=== PATIENT | female | born 1975 ===

== ENCOUNTER 2023-03-25 13:23 | Emergency (ER) | payer OTHER, SELFPAY ==
[2023-03-25 13:57] VITALS: BP 113/78; PULSE 76; RESP 18; TEMP 36.7; O2SAT 98; BMI 32.1
--- NOTE | 2023-03-25 14:01 | ED_ITS ---
HPI - General Adult General Chief complaint: Dental/Oral Stated complaint: dental and ear pain Time Seen by Provider: 03/25/23 14:15 Source: patient and RN notes reviewed Mode of arrival: ambulatory Limitations: no limitations History of Present Illness HPI narrative: This is a 47-year-old female presenting to the emergency department for evaluation right lower dental pain since yesterday per patient reports that she has a history dental infections in the past. She states that she has been taking Excedrin and Tylenol as needed for pain. She denies any fevers or chills. No difficulty swallowing. 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 No other complaints or concerns at this time. MD complaint: Dental pain Onset (ago): day(s) Radiation: non-radiation Quality: aching Pain Consistency: constant Relieving factors: none Exacerbating factors: none Associated symptoms: denies other symptoms Treatments prior to arrival: none Related Data Previous Rx's Medication Instructions Recorded amoxicillin 875 mg-potassium 1 tab PO BID 7 days #14 tabs 03/25/23 clavulanate 125 mg tablet ibuprofen 600 mg tablet 600 mg PO Q6H PRN pain #30 tabs 03/25/23 oxycodone 5 mg tablet 5 mg PO BID PRN severe pain (scale 03/25/23 score 7-10) #3 tabs Allergies Allergy/AdvReac Type Severity Reaction Status Date / Time SEAFOOD Allergy Mild ANAPHYLAXIS Uncoded 03/26/20 16:29 Review of Systems 2 Review of Systems: Yes all other systems are reviewed and are negative PMFSH Social History Social History Advance Directives: No Advance Directives Information Provided: Yes Physical Exam ED Vital Signs: Vital Signs - 24 hr 03/25/23 13:57 Temperature 98.1 F Pulse Rate 76 Respiratory Rate 18 Blood Pressure 113/78 Pulse Oximetry 98 Oxygen Delivery Method Room Air BMI result Body Mass Index 32.1 Const Other: General: Awake, alert, and oriented X3. No acute distress. HEENT: Normal inspection > see ENT for dental exam CVS: Normal heart rate and rhythm. Pulses normal. Respiratory: No respiratory distress Skin: Warm, dry, no rashes noted to exposed skin. Normal skin color. Normal skin turgor. Extremities: Normal to inspection Neuro: Oriented X 3. No motor deficit. No sensory deficit. [facility] Teeth image: 2 1. poor dentition, tenderness to palpation along tooth number 32 with obvious dental decay. No obvious dental abscess. no fluctuance or drainage noted Course Course Course Narrative: This is an RME: Additional HPI, ROS, PE not included below will be deferred to primary provider. This is a [id number]-female presenting to the emergency department with complaints of dental and ear pain x . Pt state Medications Administered Discontinued Medications Generic Name Dose Route Start Last Admin Trade Name Hasmukh PRN Reason Stop Dose Admin Oxycodone HCl 5 mg 03/25/23 14:12 03/25/23 14:23 Oxycodone Hcl Immed Release 5 Mg Tablet PO 03/25/23 14:13 5 mg ONCE ONE Administration Medical Decision Making Medical Decision Making MDM Narrative: 47-year-old female presenting to the emergency department for evaluation of dental pain since yesterday. On arrival, all vital signs within normal limits. patient has poor dentition, with tenderness palpation along tooth number 32 with dental decay noted. No drainable dental abscess noted. Patient has taken a total of 3900 mg of Tylenol since last night. patient advised to avoid taking Tylenol, and Excedrin and so tomorrow as she maxed out her Tylenol dosage. I urged the importance of this as this can lead to liver failure. she is wondering what she can take now for severe pain, given oxycodone 5 mg by mouth, her son is driving her home from the emergency department today. Patient understands and agrees with plan. Patient medicated with oxycodone given discomfort, started on Augmentin. Advised to call dentist on Monday for further treatment and evaluation. Patient understands agrees with plan. Patient stable for discharge. Differential Diagnosis Differential Diagnoses: The differential diagnosis associated with the presentation includes Dental decay, dental abscess, gingivitis, dental fracture, facial pain Discharge Plan Discharge Clinical Impression: Dental infection Patient Disposition: Home, Self-Care Instructions: Dental Abscess (ED) Additional Instructions: You have a dental infection. Please take prescribed antibiotic as directed. Do not take anymore Tylenol as you have maxed out your dose. You cannot take more than 4000g in a 24 hour period. Overdosing on tylenol is extremely dangerous. Do not take more than prescribed or indicated on directions. You may take ibuprofen every 6 hours as needed for pain. Do not take more than prescribed. You may take ibuprofen tonight as needed for pain. Starting tomorrow at 8:00 a.m., you may alternate between ibuprofen and Tylenol. Oxycodone will cause drowsiness, do not drink alcohol or drive while taking this medication. We cannot refill this medication from the emergency room. Please take prescribed antibiotic as directed, finish the entire course even if you are feeling better. Please call your dentist on Monday to make an appointment. If any new or worsening symptoms occur, please return for re-evaluation. Tienes jerson infecci?n dental. [place] el antibi?isabel recetado seg?n las indicaciones. No tome m?s Tylenol ya que nascimento llegado al m?ximo de bianchi dosis. No se pueden isidra m?s de 4000g en un periodo de 24 horas. La sobredosis de tylenol es extremadamente peligrosa. No tome m?s de lo prescrito o indicado en las instrucciones. Puede isidra ibuprofeno cada 6 horas seg?n sea necesario para el dolor. No tome m?s de lo recetado. Puede isidra ibuprofeno esta noche seg?n sea necesario para el dolor. A partir de ma?manuelito a las 8:00 horas podr?s alternar entre ibuprofeno y Tylenol. La oxicodona provocar? somnolencia; no yonatan alcohol ni conduzca mientras kayy daniel medicamento. No podemos surtir daniel medicamento desde la suzanne de emergencias. [place] el antibi?isabel recetado seg?n las indicaciones y termine todo el tratamiento incluso si se siente mejor. Llame a bianchi dentista el para programar jerson joseaf. Si se presenta alg?n s?ntoma nuevo o que empeora, regrese para jerson nueva evaluaci?n. Prescriptions: New amoxicillin-pot clavulanate 875-125 mg tablet 1 tab PO BID 7 Days Qty: 14 0RF oxycodone 5 mg tablet 5 mg PO BID PRN (Reason: severe pain (scale score 7-10)) Qty: 3 0RF Rx Instructions: Partial Fill upon patient request. ibuprofen 600 mg tablet 600 mg PO Q6H PRN (Reason: pain) Qty: 30 0RF Print Language: Somali
[2023-03-25] MEDS: oxyCODONE HCl Immed Release 5 MG TABLET PO (14:23)
== END 2023-03-25 14:44 | disposition home or self-care (01) ==
PROVIDERS: Emergency Provider Student in an Organized Health Care Education/Training Program
DX: K08.89 Other specified disorders of teeth and supporting structures (principal); K04.7 Periapical abscess without sinus
CPT/HCPCS: 99283

== ENCOUNTER 2023-11-23 14:45 | Emergency (ER) | payer OTHER, SELFPAY ==
--- NOTE | ~2023-11-23 | XR_ITS ---
EXAMINATION: XR ABDOMEN KUB CLINICAL INDICATION: Constipation COMPARISON: None available. TECHNIQUE: AP view of the abdomen. FINDINGS: Moderate stool burden suggestive of constipation. Nonobstructive bowel gas pattern. No free air. No calcifications. Normal bony structures. XR/XR KUB IMPRESSION: Moderate stool burden suggestive of constipation.
[2023-11-23 15:16] VITALS: BP 131/90; PULSE 105; RESP 18; TEMP 37.2; O2SAT 97; BMI 31.1
--- NOTE | 2023-11-23 15:17 | ED_ITS ---
HPI - General Adult General Chief complaint: Abdominal Pain Stated complaint: Constipation Time Seen by Provider: 11/23/23 17:25 Source: patient Mode of arrival: ambulatory Limitations: no limitations History of Present Illness HPI narrative: Patient has been constipated for last 5 days now difficulty in moving bowels because of pain no abdominal pain no nausea no vomiting no bleeding from rectum Related Data Previous Rx's ?Medication ?Instructions ?Recorded amoxicillin 875 mg-potassium 1 tab PO BID 7 days #14 tabs 03/25/23 clavulanate 125 mg tablet ibuprofen 600 mg tablet 600 mg PO Q6H PRN pain #30 tabs 03/25/23 oxycodone 5 mg tablet 5 mg PO BID PRN severe pain (scale 03/25/23 score 7-10) #3 tabs polyethylene glycol 3350 17 17 g PO DAILY #510 grams 11/23/23 gram/dose oral powder (Miralax) Allergies Allergy/AdvReac Type Severity Reaction Status Date / Time SEAFOOD Allergy Mild ANAPHYLAXIS Uncoded 11/23/23 15:21 Review of Systems 2 Review of Systems: Yes all other systems are reviewed and are negative [facility] Social History Social History Advance Directives: No Advance Directives Information Provided: No Do you have a plan to hurt others: No Plan Physical Exam ED Vital Signs: Vital Signs - 24 hr 11/23/23 15:16 11/23/23 17:38 Temperature 99.0 F Pulse Rate 105 H 88 Respiratory Rate 18 16 Blood Pressure 131/90 H 113/77 Pulse Oximetry 97 98 Oxygen Delivery Method Room Air Room Air BMI result Body Mass Index 31.1 Appearance: Alert. Oriented X3. No acute distress. Eyes: No pallor or icterus ENT: Pharynx normal. Oral Mucosa moist Neck: Normal inspection. Neck supple. CVS: Normal heart rate and rhythm. Pulses normal. Respiratory: No respiratory distress. Equal air entry bilateral, no wheezing/rales/rhonchi Abdomen: Soft and nontender. Bowel sounds are present, no mass palpable, no CVA tenderness rectal: Semi solid stool in the rectum no fissure, small external hemorrhoid nonbleeding Skin: Skin warm and dry. Normal skin color. Normal skin turgor. Extremities: No lower extremity edema. No calf tenderness Neuro: Oriented X 3. Course Course Course Narrative: RME performed by Patti Ojeda PA-C. Patient is a 48 year old assigned female at presenting to the emergency department with abdominal pain and constipation. Patient states she has been straining more and more to have a bowel movement and is now having low back pain and bilateral leg pain. Detailed physical exam and review of systems are deferred to the glass curvature gauger. Labs ordered. Patient placed back in the waiting room pending room availability and results. Medications Administered Discontinued Medications Generic Name Dose Route Start Last Admin Trade Name Frerocio PRN Reason Stop Dose Admin Bisacodyl 10 mg 11/23/23 19:33 11/23/23 19:47 Bisacodyl 5 Mg Tablet.Dr PO 11/23/23 19:34 10 mg ONCE ONE Administration Lidocaine HCl 10 ml 11/23/23 17:53 11/23/23 18:17 Lidocaine Hcl 2 % Urojet 10 Ml Jel.Pf.Megan TOPICAL 11/23/23 17:54 10 ml ONCE ONE Administration Magnesium Hydroxide 30 ml 11/23/23 19:33 11/23/23 19:47 Milk Of Magnesia 30 Ml Oral.Susp PO 11/23/23 19:34 30 ml ONCE ONE Administration Medical Decision Making Medical Decision Making [facility] Narrative: Manual disimpaction was done patient had a good bowel movement after that will discharge patient home on MiraLax Lab Data [facility] Lab Attestation statement: I reviewed the patient's lab results. 11/23/23 15:32 11/23/23 15:32 Labs: Lab Results 11/23/23 Range/Units 15:32 WBC 10.1 (4.8-10.8) X10*3/uL RBC 3.85 L (4.20-5.50) X10*6/uL Hgb 11.8 L (12.0-16.0) g/dl Hct 34.5 L (37.0-47.0) % MCV 89.6 (80.0-98.0) fL MCH 30.6 (27.0-33.0) pg MCHC 34.2 (31.0-35.0) g/dl RDW 14.6 (11.0-16.0) % Plt Count 251 (160-400) X10*3/uL MPV 10.2 (9.4-12.3) fL Immature Gran % (Auto) 0.4 (0.0-0.4) % Neut % (Auto) 74.7 H (45-73) % Lymph % (Auto) 17.1 L (20-40) % [place] % (Auto) 6.8 (2-11) % Eos % (Auto) 0.8 (0-4) % Baso % (Auto) 0.2 (0-2) % Lymph # (Auto) 1.7 (1.2-4.9) X10*3/uL [place] # (Auto) 0.7 (0.1-1.2) X10*3/uL Eos # (Auto) 0.1 (0.0-0.4) X10*3/uL Baso # (Auto) 0.0 (0.0-0.2) X10*3/uL Abs Immat Gran (auto) 0.04 H (0.00-0.03) X10*3/uL Absolute Neuts (auto) 7.6 (2.0-8.3) x10*3/uL Absolute Nucleated RBC 0.000 (0.0-0.012) X10*3/uL Nucleated RBC % (auto) 0.0 (0.0-0.2) /100WBC Sodium 138 (135-145) mmol/L Potassium 4.0 (3.3-5.1) mmol/L Chloride 107 (96-108) mmol/L Carbon Dioxide 22 (22-29) mmol/L Anion Gap 13 (12-20) BUN 7 L (9-16) mg/dL Creatinine 0.70 (0.5-1.4) mg/dL Estim Creat Clear Calc 82.6 Estimated GFR > 60 Random Glucose 92 (60-115) mg/dL Calcium 9.2 (8.4-10.2) mg/dL Magnesium 1.9 (1.6-2.6) mg/dL Total Bilirubin 0.6 (0.0-1.0) mg/dL AST 18 (5-31) U/L ALT 12 (0-31) U/L Alkaline Phosphatase 76 (39-117) U/L Total Protein 7.6 (6.5-8.0) g/dL Albumin 4.1 (3.5-5.0) g/dL Independent Interpretation I performed an independent interpretation of an: Plain X-Ray Radiology Impression Discussion of test interpretation with radiology: I have reviewed the radiologist's reading. Discharge Plan Discharge Clinical Impression: Constipation Patient Disposition: Home, Self-Care Instructions: Constipation (ED) Additional Instructions: Drink plenty of fluids Stool softener as prescribed Follow the PCP if any concerns Prescriptions: New polyethylene glycol 3350 [Miralax] 17 gram/dose powder 17 g PO DAILY Qty: 510 0RF No Action amoxicillin-pot clavulanate 875-125 mg tablet 1 tab PO BID 7 Days Qty: 14 0RF oxycodone 5 mg tablet 5 mg PO BID PRN (Reason: severe pain (scale score 7-10)) Qty: 3 0RF Rx Instructions: Partial Fill upon patient request. ibuprofen 600 mg tablet 600 mg PO Q6H PRN (Reason: pain) Qty: 30 0RF Print Language: Monegasque
[2023-11-23 15:37] LABS: MANUAL DIFF FLAG NO
[2023-11-23 15:38] LABS: Basophils Percent Auto 0.2 % (0-2); Eosinophils Absolute Auto 0.1 X10*3/uL (0.0-0.4); Eosinophils Percent Auto 0.8 % (0-4); Hematocrit 34.5 % (37.0-47.0); Hemoglobin 11.8 g/dl (12.0-16.0); Imm Gran Abs Auto 0.04 X10*3/uL (0.00-0.03); Imm Gran Pct Auto 0.4 % (0.0-0.4); Lymphocytes Absolute Auto 1.7 X10*3/uL (1.2-4.9); Lymphocytes Percent Auto 17.1 % (20-40); Mean Corpuscular HGB Conc 34.2 g/dl (31.0-35.0); Mean Corpuscular Hemoglobin 30.6 pg (27.0-33.0); Mean Corpuscular Volume 89.6 fL (80.0-98.0); Mean Platelet Volume 10.2 fL (9.4-12.3); Monocytes Absolute Auto 0.7 X10*3/uL (0.1-1.2); Monocytes Percent Auto 6.8 % (2-11); Neutrophils Absolute Auto 7.6 x10*3/uL (2.0-8.3); Neutrophils Percent Auto 74.7 % (45-73); Platelet Count 251 X10*3/uL (160-400); Red Blood Count 3.85 X10*6/uL (4.20-5.50); Red Cell Distribution Width 14.6 % (11.0-16.0); White Blood Count 10.1 X10*3/uL (4.8-10.8)
[2023-11-23 15:53] LABS: Alanine Aminotransferase 12 U/L (0-31); Albumin Level 4.1 g/dL (3.5-5.0); Alkaline Phosphatase 76 U/L (39-117); Anion Gap 13 (12-20); Aspartate Amino Transferase 18 U/L (5-31); Bilirubin Total 0.6 mg/dL (0.0-1.0); Blood Urea Nitrogen 7 mg/dL (9-16); Calcium 9.2 mg/dL (8.4-10.2); Carbon Dioxide 22 mmol/L (22-29); Chloride 107 mmol/L (96-108); Creatinine Clr Calc Pharmacy 82.6; Estimated Glomerular Filt Rate > 60; Glucose Random 92 mg/dL (60-115); Magnesium 1.9 mg/dL (1.6-2.6); Sodium 138 mmol/L (135-145); Total Protein 7.6 g/dL (6.5-8.0)
[2023-11-23 17:38] VITALS: BP 113/77; PULSE 88; RESP 16; O2SAT 98
[2023-11-23] MEDS: Lidocaine HCl 2 % Urojet 10 ML JEL.PF.APP TOPICAL (18:17)
[2023-11-23] MEDS: Milk of Magnesia 30 ML ORAL.SUSP PO (19:47)
[2023-11-23] MEDS: bisacodyL 5 MG TABLET.DR 10 MG PO (19:47)
== END 2023-11-23 20:00 | disposition home or self-care (01) ==
PROVIDERS: Physician Assistant Medical; Emergency Provider Internal Medicine
DX: K59.00 Constipation, unspecified (principal)
CPT/HCPCS: 36415; 74018; 80053; 83735; 85025; 99283

== ENCOUNTER 2025-02-20 13:42 | Emergency (ER) | payer OTHER, SELFPAY ==
--- NOTE | ~2025-02-20 | XR_ITS ---
EXAMINATION: Right hand and right shoulder. CLINICAL INDICATION: Pain. COMPARISON: None. TECHNIQUE: Right shoulder 4 views. Right hand 3 views. FINDINGS: Right hand: There is mild loss of PIP and DIP joint spaces with minimal periarticular spurring along the DIP joints second through fifth digits and PIP joint first, third, fourth and fifth digits. No bony erosive changes or loose bodies seen. No abnormal joint effusion. The soft tissues are normal. Right shoulder: The glenohumeral and AC joint spaces maintain normal. No visible acute fracture, dislocation or bony erosive changes seen. The soft tissues are normal. XR/XR hand RT min 3V IMPRESSION: Unremarkable right shoulder exam. Suspect mild degenerative changes of the right hand. Electronically signed by: Kerwin Montoya MD 02/20/2025 03:19 PM EDT
--- NOTE | ~2025-02-20 | XR_ITS ---
EXAMINATION: Right hand and right shoulder. CLINICAL INDICATION: Pain. COMPARISON: None. TECHNIQUE: Right shoulder 4 views. Right hand 3 views. FINDINGS: Right hand: There is mild loss of PIP and DIP joint spaces with minimal periarticular spurring along the DIP joints second through fifth digits and PIP joint first, third, fourth and fifth digits. No bony erosive changes or loose bodies seen. No abnormal joint effusion. The soft tissues are normal. Right shoulder: The glenohumeral and AC joint spaces maintain normal. No visible acute fracture, dislocation or bony erosive changes seen. The soft tissues are normal. XR/XR shoulder RT min 2V IMPRESSION: Unremarkable right shoulder exam. Suspect mild degenerative changes of the right hand. Electronically signed by: Kerwin Montoya MD 02/20/2025 03:19 PM EDT
[2025-02-20 14:16] VITALS: BP 125/73; PULSE 78; RESP 16; TEMP 36.8; O2SAT 96; BMI 33.1
--- NOTE | 2025-02-20 14:21 | ED_ITS ---
HPI - General Adult General Chief complaint: Extremity Injury, Upper Stated complaint: Middle finger swelling/pain no injury Time Seen by Provider: 02/20/25 19:29 Source: patient Mode of arrival: ambulatory Limitations: language barrier (Syrian speaking only, [facility] lead warehouse associate used) History of Present Illness ED Provider: Dr. Luis Miguel Newton HPI narrative: 49-year-old female with no significant past medical history who presents emergency department for evaluation of pain in her right middle finger, forearm and shoulder. Patient does not report any acute injury. She states that she does carry her grandchild and also tried lifting weights. She states that the pain has been bothering her on and off for months. She states that today she noticed swelling and pain in her right finger and the pain in her right forearm/elbow/shoulder became worse. She denied any increased warmth or redness of her finger. She denied fever or chills. Related Data Previous Rx's ?Medication ?Instructions ?Recorded amoxicillin 875 mg-potassium 1 tab PO BID 7 days #14 t abs 03/25/23 clavulanate 125 mg tablet ibuprofen 600 mg tablet 600 mg PO Q6H PRN pain #30 t abs 03/25/23 oxycodone 5 mg tablet 5 mg PO BID PRN severe pain (scale 03/25/23 score 7-10) #3 tabs polyethylene glycol 3350 17 17 g PO DAILY #510 grams 0 11/23/23 gram/dose oral powder (Miralax) acetaminophen 500 mg tablet 1,000 mg (2 x 500 mg) PO Q 6H PRN 02/20/25 (Tylenol Extra Strength) fever or pain #20 tabs prednisone 10 mg tablet 10 mg PO DIRECTED #60 tab s 02/20/25 Allergies Allergy/AdvReac Type Severity Reaction Status Date / Time SEAFOOD Allergy Mild ANAPHYLAXIS Uncoded 02/20/25 14:26 Review of Systems 2 Review of Systems: Yes all other systems are reviewed and are negative PMFSH Social History Social History Advance Directives: No Do you have a plan to hurt others: No Plan Physical Exam ED Vital Signs: Vital Signs - 24 hr 02/20/25 14:16 Temperature 98.2 F Pulse Rate 78 Respiratory Rate 16 Blood Pressure 125/73 Pulse Oximetry 96 Oxygen Delivery Method Room Air BMI result Body Mass Index 33.1 Vital signs were normal Exam Right upper extremity: Patient has some mild swelling of the right middle finger with no erythema or increased warmth. She has normal range of motion of her finger actively and no significant pain with passive flexion of the finger, the fingers neurovascularly intact. Patient does have tenderness palpation of her medial forearm to the elbow with increased tenderness over the elbow with normal range of motion. Patient also has tenderness palpation of the right shoulder in the right AC joint with full range of motion passively and actively. Extremities neurovascularly intact Course Course Course Narrative: This is an RME: Additional HPI, ROS, PE not included below will be deferred to primary provider. RME assessment and note performed by: Tran Woodson PA-C This is a 49-year-old female who presents emergency department with concerns of right 3rd digit pain, and right shoulder pain as well as chest pain. Patient reports that she has been holding her grandchild for prolonged periods of time. She states that the pain starts into her right shoulder, radiates down into her right middle finger, and radiates across her entire chest. Patient has tenderness palpation along the PIP with moderate edema, full range of motion, pain with range of motion, strong radial pulse, she does have tenderness palpation along the right AC joint, full ROM of the right shoulder without difficulty. Plan: X-ray, EKG, labs, further ER evaluation needed. Medical Decision Making Medical Decision Making MDM Narrative: 49-year-old female with no significant past medical history who presents emergency department for evaluation of pain in her right middle finger, forearm and shoulder. Patient does not report any acute injury. She states that she does carry her grandchild and also tried lifting weights. She states that the pain has been bothering her on and off for months. She states that today she noticed swelling and pain in her right finger and the pain in her right forearm/elbow/shoulder became worse. She denied any increased warmth or redness of her finger. She denied fever or chills. Vital signs were normal. Exam did reveal swelling of the right middle finger but no evidence for tenosynovitis. The patient did have tenderness with palpation of her right lateral forearm and tenderness palpation over the lateral aspect of the elbow. Patient had full range of motion of her shoulder with some tenderness palpation over the AC joint. Differential diagnosis: ?Includes but is not limited to right finger tenosynovitis, right fingers pain, right forearm repetitive motion/tendonitis, tennis elbow, right shoulder sprain/strain Course: 20:15 My independent interpretation patient's laboratory evaluation is as follows: WBC was normal 5200. Normocytic anemia with an H&H of 12.7 and 36.4. Platelet count was normal. CMP was normal. X-rays of the right hand and right shoulder were unremarkable except for degenerative changes in the right hand. This time I suspect the patient has tendonitis of her forearm and possibly of the shoulder as well. I do not think that she has a an infectious process or tenosynovitis of the right middle finger. Patient was started on a prednisone tapering course of 60 mg once a day for 5 days decrease by 10 mg every 2 days. She was also advised to take Tylenol for pain. She was given printed and verbal instructions and discharged home. Admission/Observation Consideration of admission/observation: Escalation of care including admission/observation considered (Yes) Lab Data MDM Lab Attestation statement: I reviewed the patient's lab results. 02/20/25 14:44 02/20/25 14:44 Labs: Lab Results 02/20/25 Range/Units 14:44 WBC 5.2 (4.8-10.8) X10*3/uL RBC 4.07 L (4.20-5.50) X10*6/uL Hgb 12.7 (12.0-16.0) g/dl Hct 36.4 L (37.0-47.0) % MCV 89.4 (80.0-98.0) fL MCH 31.2 (27.0-33.0) pg MCHC 34.9 (31.0-35.0) g/dl RDW 13.5 (11.0-16.0) % Plt Count 199 (160-400) X10*3/uL MPV 10.5 (9.4-12.3) fL Immature Gran % (Auto) 0.4 (0.0-0.4) % Neut % (Auto) 59.1 (45-73) % Lymph % (Auto) 31.4 (20-40) % [place] % (Auto) 7.7 (2-11) % Eos % (Auto) 1.0 (0-4) % Baso % (Auto) 0.4 (0-2) % Lymph # (Auto) 1.6 (1.2-4.9) X10*3/uL [place] # (Auto) 0.4 (0.1-1.2) X10*3/uL Eos # (Auto) 0.1 (0.0-0.4) X10*3/uL Baso # (Auto) 0.0 (0.0-0.2) X10*3/uL Abs Immat Gran (auto) 0.02 (0.00-0.03) X10*3/uL Absolute Neuts (auto) 3.1 (2.0-8.3) x10*3/uL Absolute Nucleated RBC 0.000 (0.0-0.012) X10*3/uL Nucleated RBC % (auto) 0.0 (0.0-0.2) /100WBC Sodium 141 (135-145) mmol/L Potassium 3.9 (3.3-5.1) mmol/L Chloride 109 H (96-108) mmol/L Carbon Dioxide 25 (22-29) mmol/L Anion Gap 11 L (12-20) BUN 9 (9-16) mg/dL Creatinine 0.65 (0.5-1.4) mg/dL Estim Creat Clear Calc 102.8 Estimated GFR > 60 Random Glucose 88 (60-115) mg/dL Calcium 9.1 (8.4-10.2) mg/dL Total Bilirubin 0.4 (0.0-1.0) mg/dL Direct Bilirubin 0.2 (0.0-0.5) mg/dL AST 30 (5-31) U/L ALT 29 (0-31) U/L Alkaline Phosphatase 99 (39-117) U/L Troponin I High Sens 3.0 (<3.5-17.0) ng/L Total Protein 7.1 (6.5-8.0) g/dL Albumin 4.2 (3.5-5.0) g/dL Independent Interpretation I performed an independent interpretation of an: Plain X-Ray Interpretation: My independent interpretation of the patient's right hand x-ray is as follows: No acute fracture, degenerative joint disease of the PIP joints My independent interpretation of the patient's right shoulder x-ray is as follows: No acute fracture, no dislocation, degenerative joint disease Radiology Impression Discussion of test interpretation with radiology: I have reviewed the radiologist's reading. Radiologist Impression: XR hand RT min 3V and right shoulder IMPRESSION: Unremarkable right shoulder exam. Suspect mild degenerative changes of the right hand. Electronically signed by: Kerwin Montoya MD 02/20/2025 03:19 PM EDT Prescription Management I considered prescription management with: Other (Acetaminophen and anti- inflammatory steroids: Prednisone) Discharge Plan Discharge Clinical Impression: Tendonitis of elbow, right, Swelling of right middle finger, Acute pain of right shoulder Patient Disposition: Home, Self-Care Instructions: Tennis Elbow (ED) Additional Instructions: Your pain and swelling is secondary to inflammation of the tendons of your forearm. You do have swelling of your right middle finger but I do not think you have an infection at this time. Take prednisone 10 mg pills, 6 pills once a day for 5 days then decrease by 1 pill every 2 days until you complete the prescription.. While you ?are taking prednisone, do not take any NSAIDs (Motrin, Advil, ibuprofen, Aleve, naproxen). Take Tylenol 500 mg pills, 2 pills every 6 hours as needed for pain. Apply ice to your elbow and right middle finger for 15 minutes 4 to 6 times a day for the next 4 days to help reduce the inflammation in these tendons. After 4 days you can use a heating pad on low for 15 minutes 4 to 6 times a day. Follow-up with your doctor in 2 days. Please return to the emergency department if your symptoms get worse or if you develop any symptoms that are concerning to you. Your blood work was unremarkable. The x-rays of your right hand, and right shoulder did not reveal any significant abnormalities which is reassuring. Prescriptions: New prednisone 10 mg tablet 10 mg PO DIRECTED Qty: 60 0RF Rx Instructions: Day 1 through 5 take 6 pills then decrease by 1 pill every 2 days until you complete prescription acetaminophen [Tylenol Extra Strength] 500 mg tablet 1,000 mg PO Q6H PRN (Reason: fever or pain) Qty: 20 0RF No Action amoxicillin-pot clavulanate 875-125 mg tablet 1 tab PO BID 7 Days Qty: 14 0RF oxycodone 5 mg tablet 5 mg PO BID PRN (Reason: severe pain (scale score 7-10)) Qty: 3 0RF Rx Instructions: Partial Fill upon patient request. ibuprofen 600 mg tablet 600 mg PO Q6H PRN (Reason: pain) Qty: 30 0RF polyethylene glycol 3350 [Miralax] 17 gram/dose powder 17 g PO DAILY Qty: 510 0RF Print Language: Syrian
--- NOTE | 2025-02-20 14:26 | ECG_ITS ---
Test Reason : chest pain Blood Pressure : */* mmHG Vent. Rate : 64 BPM Atrial Rate : 64 BPM P-R Int : 128 ms QRS Dur : 74 ms QT Int : 390 ms P-R-T Axes : 68 16 13 degrees QTcB Int : 402 ms Normal sinus rhythm Normal ECG When compared with ECG of 25-Jul-2011 20:52, No significant changes seen Referred By: Tran Woodson Electronically Signed By: Raghav Cavazos
[2025-02-20 14:48] LABS: MANUAL DIFF FLAG NO
[2025-02-20 14:50] LABS: Hematocrit 36.4 % (37.0-47.0); Hemoglobin 12.7 g/dl (12.0-16.0); Imm Gran Abs Auto 0.02 X10*3/uL (0.00-0.03); Imm Gran Pct Auto 0.4 % (0.0-0.4); Lymphocytes Absolute Auto 1.6 X10*3/uL (1.2-4.9); Mean Corpuscular HGB Conc 34.9 g/dl (31.0-35.0); Mean Corpuscular Hemoglobin 31.2 pg (27.0-33.0); Mean Corpuscular Volume 89.4 fL (80.0-98.0); NRBC Abs Auto 0.000 X10*3/uL (0.0-0.012); NRBC Pct Auto 0.0 /100WBC (0.0-0.2); Platelet Count 199 X10*3/uL (160-400); Red Blood Count 4.07 X10*6/uL (4.20-5.50); White Blood Count 5.2 X10*3/uL (4.8-10.8)
[2025-02-20 15:03] LABS: Alanine Aminotransferase 29 U/L (0-31); Albumin Level 4.2 g/dL (3.5-5.0); Alkaline Phosphatase 99 U/L (39-117); Anion Gap 11 (12-20); Aspartate Amino Transferase 30 U/L (5-31); Blood Urea Nitrogen 9 mg/dL (9-16); Calcium 9.1 mg/dL (8.4-10.2); Carbon Dioxide 25 mmol/L (22-29); Chloride 109 mmol/L (96-108); Creatinine Clr Calc Pharmacy 102.8; Estimated Glomerular Filt Rate > 60; Potassium 3.9 mmol/L (3.3-5.1); Sodium 141 mmol/L (135-145); Total Protein 7.1 g/dL (6.5-8.0)
[2025-02-20 15:10] LABS: Troponin-I High Sensitivity 3.0 ng/L (<3.5-17.0)
[2025-02-20 21:10] VITALS: BP 125/73; PULSE 78; RESP 16; TEMP 36.8; O2SAT 96
== END 2025-02-20 21:11 | disposition home or self-care (01) ==
PROVIDERS: Physician Assistant Medical; Emergency Provider Emergency Medicine Emergency Medical Services
DX: M77.8 Other enthesopathies, not elsewhere classified (principal); M25.511 Pain in right shoulder; M79.641 Pain in right hand; R07.9 Chest pain, unspecified; M79.89 Other specified soft tissue disorders
CPT/HCPCS: 36415; 73030; 73130; 80048; 80076; 84484; 85025; 93005; 99283

== ENCOUNTER → 2025-02-20 14:26 | Outpatient (BNV) | payer OTHER, SELFPAY | PROVIDERS: Emergency Provider Emergency Medicine Emergency Medical Services; Visit Provider Internal Medicine Cardiovascular Disease | DX: R07.9 Chest pain, unspecified (principal) | CPT/HCPCS: 93010 ==

== ENCOUNTER → 2025-02-20 14:26 | Outpatient (BNV) | payer OTHER, SELFPAY | PROVIDERS: Visit Provider Radiology Diagnostic Radiology | DX: M25.511 Pain in right shoulder (principal); M79.641 Pain in right hand | CPT/HCPCS: 73030; 73130 ==